=== PATIENT | female | born 1955 | race Caucasian/White ===

== ENCOUNTER → 2016-04-03 | Outpatient (CLI) | payer MEDICARE, BC ==
[2016-04-03 11:37] LABS: HEMATOCRIT 44.7 % (36.0-47.0); HEMOGLOBIN 13.9 g/dL (12.0-15.5); MEAN CORPUSCULAR HEMOGLOBIN 28.6 pg (27.0-33.4); MEAN CORPUSCULAR HGB CONC 31.1 g/dL (32.0-36.0); MEAN CORPUSCULAR VOLUME 92 fl (80-97); RED BLOOD COUNT 4.86 10^6/uL (3.72-5.28); RED CELL DISTRIBUTION WIDTH 13.8 % (11.5-14.0); WHITE BLOOD COUNT 17.9 10^3/uL (4.0-10.5)
[2016-04-03 11:58] LABS: ANION GAP 10 (5-19); BLOOD UREA NITROGEN 6 mg/dL (7-20); CARBON DIOXIDE 37 mmol/L (22-30); CHLORIDE 94 mmol/L (98-107); CHOLESTEROL 263.71 mg/dL (0-200); CREATININE RESULT 0.58 mg/dL (0.52-1.25); Direct HDL 38 mg/dL (>40); GLUCOSE 109 mg/dL (75-110); POTASSIUM 4.2 mmol/L (3.6-5.0); SODIUM 141.1 mmol/L (137-145)
[2016-04-03 12:11] LABS: DIRECT LDL 118 mg/dL (<100)
[2016-04-03 13:00] LABS: TRIGLYCERIDES 752 mg/dL (<150)
== END ==
LOC: OD 10:17
PROVIDERS: ATTEND Family Medicine
DX: E78.2 Mixed hyperlipidemia (principal); E11.9 Type 2 diabetes mellitus without complications; I10 Essential (primary) hypertension; R53.82 Chronic fatigue, unspecified
CPT/HCPCS: 36415; 80048; 80061; 82607; 83036; 84443; 85027

== ENCOUNTER → 2017-02-26 | Outpatient (CLI) | payer MEDICARE, BC | LOC: OD 10:03 | PROVIDERS: ATTEND Family Medicine | DX: E11.9 Type 2 diabetes mellitus without complications (principal) | CPT/HCPCS: 36415; 82043; 83036 ==

== ENCOUNTER 2017-03-15 17:56 | Inpatient (IN) | payer MEDICARE, BC ==
[2017-03-15] MEDS ORDERED: PREDNISONE 20 MG TABLET PO ONE (19:14)
[2017-03-15] MEDS ORDERED: IPRATROPIUM/ALBUTEROL 0.5-2.5 MG/3 ML AMPUL NEB ONE (19:14)
[2017-03-15] MEDS ORDERED: METHYLPREDNISOLONE INJ 125 MG/2 ML SDV IV ONE (19:18)
--- NOTE | 2017-03-15 19:18 | ER Document Report ---
ED General - General Chief Complaint: Nausea/Vomiting/Diarrhea Stated Complaint: FLU LIKE SYMPTOMS Time Seen by Provider: 03/15/17 19:14 Notes: 61 years old female presents today with nausea and vomited a few times and little fever loose stools as well as diffuse abdominal discomfort. And also coughing largely dry but sometimes with yellow sputum. Wheezing on and off. With a history of smoking. General body aches and pain. No headache dizziness neck pain neck stiffness earache. TRAVEL OUTSIDE OF THE [place] IN LAST 30 DAYS: No - Related Data Allergies/Adverse Reactions: sulfamethoxazole [From ] Allergy (Verified 03/15/17 18:18) trimethoprim [From ] Allergy (Verified 03/15/17 18:18) Past Medical History - Social History Smoking Status: Current Every Day Smoker Frequency of alcohol use: None Drug Abuse: None Family History: Hypertension Patient has suicidal ideation: No Patient has homicidal ideation: No - Past Medical History Cardiac Medical History: Reports: Hx Hypertension, Other - COPD Pulmonary Medical History: Reports: Hx COPD - Home Oxygen 4.5L, Hx Pneumonia Endocrine Medical History: Reports: Hx Diabetes Mellitus Type 2 Renal/ Medical History: Denies: Hx Peritoneal Dialysis Review of Systems - Review of Systems Notes: REVIEW OF SYSTEMS: CONSTITUTIONAL : Denies fever, chills, or sweats. Denies recent illness. EENT: Denies eye, ear, throat, or mouth pain or symptoms. Denies nasal or sinus congestion or discharge. Denies throat, tongue, or mouth swelling or difficulty swallowing. CARDIOVASCULAR: Denies chest pain. Denies palpitations or racing or irregular heart beat. Denies ankle edema. RESPIRATORY: GASTROINTESTINAL: As per history of complain GENITOURINARY: Denies difficulty urinating, painful urination, burning, frequency, blood in urine, or discharge. FEMALE GENITOURINARY: Denies vaginal bleeding, heavy or abnormal periods, irregular periods. Denies vaginal discharge or odor. MUSCULOSKELETAL: Denies back or neck pain or stiffness. Denies joint pain or swelling. SKIN: Denies rash, lesions or sores. HEMATOLOGIC : Denies easy bruising or bleeding. LYMPHATIC: Denies swollen, enlarged glands. NEUROLOGICAL: Denies confusion or altered mental status. Denies passing out or loss of consciousness. Denies dizziness or lightheadedness. Denies headache. Denies weakness or paralysis or loss of use of either side. Denies problems with gait or speech. Denies sensory loss, numbness, or tingling. Denies seizures. PSYCHIATRIC: Denies anxiety or stress. Denies depression, suicidal ideation, or homicidal ideation. ALL OTHER SYSTEMS REVIEWED AND NEGATIVE. PHYSICAL EXAMINATION: GENERAL: Well-appearing, well-nourished and i mild to moderate discomfort. HEAD: Atraumatic, normocephalic. EYES: Pupils equal round and reactive to light, extraocular movements intact, conjunctiva are normal. ENT: Nares patent, oropharynx clear without exudates. Moist mucous membranes. NECK: Normal range of motion, supple without lymphadenopathy LUNGS: Bilaterally decreased breath sounds with scattered mild wheezes throughout the lung field HEART: Regular rate and rhythm without murmurs ABDOMEN: Soft, nontender, nondistended abdomen. No guarding, no rebound. No masses appreciated. Female : deferred Musculoskeletal: Normal range of motion, no pitting or edema. No cyanosis. NEUROLOGICAL: Cranial nerves grossly intact. Normal speech, normal gait. Normal sensory, motor exams PSYCH: Normal mood, normal affect. SKIN: Warm, Dry, normal turgor, no rashes or lesions noted. Dictation was performed using [employer] voice recognition software Physical Exam - Vital signs Vitals: Temp Pulse Resp BP Pulse Ox 98.6 F 100 18 108/57 L 93 03/15/17 18:10 03/15/17 18:10 03/15/17 18:10 03/15/17 18:10 03/15/17 18:10 Course - Re-evaluation Re-evalutation: 03/15/17 20:53 Patient complaint of chest pain therefore given morphine, chest x-ray came back as right sided patchy infiltrate of pneumonia. - Vital Signs Vital signs: Temp Pulse Resp BP Pulse Ox 98.6 F 100 18 104/53 L 92 03/15/17 18:10 03/15/17 18:10 03/15/17 18:10 03/15/17 21:02 03/15/17 21:02 - Laboratory Result Diagrams: 03/15/17 20:35 03/15/17 20:35 Laboratory results interpreted by me: 03/15/17 03/15/17 20:35 20:35 WBC 28.5 H RDW 14.8 H Seg Neuts % (Manual) 84 H Lymphocytes % (Manual) 9 L Monocytes % (Manual) 1 L Metamyelocytes % 1 H Abs Neuts (Manual) 25.4 H Sodium 136.3 L Chloride 96 L Carbon Dioxide 32 H Glucose 118 H Discharge - Discharge Clinical Impression: Hypoxia Pneumonia Qualifiers: Pneumonia type: aspiration pneumonia Aspiration pneumonia type: unspecified Laterality: right Lung location: lower lobe of lung Qualified Code(s): J69.0 - Pneumonitis due to inhalation of food and vomit Disposition: ADMITTED INPATIENT Admitting Provider: Hospitalist - Unit Admitted: Telemetry - Referrals: HORACIO CANSECO MD [Primary Care Provider] - Follow up as needed
--- NOTE | 2017-03-15 19:37 | RADIOLOGY REPORT (SQ) ---
EXAM DESCRIPTION: CHEST SINGLE VIEW COMPLETED DATE/TIME: 03/15/2017 7:18 pm REASON FOR STUDY: cough COMPARISON: 10/15/2009 EXAM PARAMETERS: NUMBER OF VIEWS: One view. TECHNIQUE: Single frontal radiographic view of the chest acquired. RADIATION DOSE: NA LIMITATIONS: None. FINDINGS: LUNGS AND PLEURA: Patchy consolidation throughout the right lung. Left lung appears clear . No pneumothorax. No significant effusion. MEDIASTINUM AND HILAR STRUCTURES: Stable. HEART AND VASCULAR STRUCTURES: Heart normal in size. Normal vasculature. BONES: No acute findings. HARDWARE: None in the chest. OTHER: No other significant finding. IMPRESSION: Patchy consolidation throughout the right lung. TECHNICAL DOCUMENTATION: JOB ID: [id number] [place]-72 2010 [employer]- All Rights Reserved
[2017-03-15] MEDS: NORMAL SALINE 1000 ML 1,000 ML IV PRN ×4 (19:40→23:39)
[2017-03-15 20:31] LABS: A TYPE INFLUENZA AG NEGATIVE (NEGATIVE); B INFLUENZA AG NEGATIVE (NEGATIVE)
[2017-03-15] MEDS ORDERED: METOCLOPRAMIDE HCL INJ/PF 10 MG/2 ML SDV IV ONE (20:52)
[2017-03-15] MEDS ORDERED: PIPERACILLIN/TAZOBACTAM 3.375 GM VIAL IV ONE (20:52)
[2017-03-15] MEDS ORDERED: MORPHINE SULFATE 10 MG/ML INJ IV ONE (20:52)
[2017-03-15 21:17] LABS: HEMATOCRIT 43.1 % (36.0-47.0); HEMOGLOBIN 14.1 g/dL (12.0-15.5); MEAN CORPUSCULAR HGB CONC 32.6 g/dL (32.0-36.0); MEAN CORPUSCULAR VOLUME 92 fl (80-97); PLATELET COUNT 357 10^3/uL (150-450); RED BLOOD COUNT 4.69 10^6/uL (3.72-5.28); RED CELL DISTRIBUTION WIDTH 14.8 % (11.5-14.0)
[2017-03-15 21:25] LABS: ALANINE AMINOTRANSFERASE 37 U/L (9-52); ALBUMIN 3.5 g/dL (3.5-5.0); ALKALINE PHOSPHATASE 83 U/L (38-126); ANION GAP 8 (5-19); ASPARTATE AMINO TRANSFERASE 36 U/L (14-36); BILIRUBIN,DIRECT 0.3 mg/dL (0.0-0.4); BILIRUBIN,TOTAL 0.7 mg/dL (0.2-1.3); BLOOD UREA NITROGEN 17 mg/dL (7-20); CALCIUM 8.9 mg/dL (8.4-10.2); CARBON DIOXIDE 32 mmol/L (22-30); CHLORIDE 96 mmol/L (98-107); GLUCOSE 118 mg/dL (75-110); POTASSIUM 4.7 mmol/L (3.6-5.0); SODIUM 136.3 mmol/L (137-145); TOTAL PROTEIN 6.3 g/dL (6.3-8.2)
[2017-03-15 21:46] LABS: ABSOLUTE LYMPHOCYTES# (MANUAL) 2.6 10^3/uL (0.5-4.7); ABSOLUTE MONOCYTES # (MANUAL) 0.3 10^3/uL (0.1-1.4); ABSOLUTE NEUTROPHILS# (MANUAL) 25.4 10^3/uL (1.7-8.2); BAND NEUTROPHILS % (MANUAL) 4 % (3-5); BASOPHILS % (MANUAL) 0 % (0-2); EOSINOPHILS % (MANUAL) 1 % (0-6); LYMPHOCYTES % (MANUAL) 9 % (13-45); METAMYELOCYTES % (MANUAL) 1 % (0); MONOCYTES % (MANUAL) 1 % (3-13); SEGMENTED NEUTROPHILS % (MAN) 84 % (42-78); TOTAL CELLS COUNTED 100
[2017-03-15 21:49] LABS: ANISOCYTOSIS SLIGHT; PLATELET CLUMPS PRESENT; PLATELET COMMENT ADEQUATE; PLATELET GIANT PRESENT; PLATELET LARGE PRESENT; TOXIC GRANULATION 1+
[2017-03-15 21:52] LABS: WHITE BLOOD COUNT 28.5 10^3/uL (4.0-10.5)
[2017-03-15] MEDS ORDERED: LEVALBUTEROL HCL NEB 1.25 MG/3 ML AMPUL NEB PRN (22:14)
[2017-03-15] MEDS ORDERED: ACETAMINOPHEN 325 MG TABLET PO PRN (22:14)
[2017-03-15] MEDS ORDERED: KETOROLAC TROMETHAMINE INJ/PF 30 MG/1 ML SDV IV PRN (22:26)
[2017-03-15] MEDS ORDERED: DEXTROSE 50%-WATER 25 GM/50 ML DISP.SYRIN IV PRN ×2 (22:28)
[2017-03-15] MEDS ORDERED: GLUCAGON,HUMAN RECOMB 1 MG INJ IM PRN (22:28)
[2017-03-15] MEDS ORDERED: DEXTROSE 40% GEL 15 GM TUBE PO PRN ×2 (22:28)
[2017-03-15 23:00] LABS: APPEARANCE,URINE CLOUDY; BILIRUBIN,URINE NEGATIVE (NEGATIVE); COLOR,URINE YELLOW; GLUCOSE, URINE NEGATIVE (NEGATIVE); KETONES,URINE NEGATIVE (NEGATIVE); LEUKOCYTE ESTERASE,URINE LARGE (NEGATIVE); NITRITE,URINE NEGATIVE (NEGATIVE); PROTEIN,URINE NEGATIVE (NEGATIVE); URINE SPECIFIC GRAVITY 1.012; UROBILINOGEN,URINE NEGATIVE mg/dL (<2.0)
[2017-03-15] MEDS ORDERED: LEVOFLOXACIN 750 MG/D5W RTU 750 MG/150 ML RTUPB IV ONE (23:00)
[2017-03-15] MEDS ORDERED: CEFTRIAXONE 1 GM/D5W RTU 1 GM/50 ML RTUPB IV ONE (23:00)
[2017-03-15] MEDS ORDERED: GUAIFENESIN 600 MG TABLET.SA PO ONE (23:00)
[2017-03-15] MEDS ORDERED: NORMAL SALINE 1000 ML 1,000 ML IV ONE (23:22)
[2017-03-15] MEDS ORDERED: BENZONATATE 100 MG CAPSULE PO PRN (23:26)
[2017-03-15] MEDS ORDERED: VANCOMYCIN HCL 0 MG in DEXTROSE 5%-WATER 250 ML IV NR (23:30)
[2017-03-15] MEDS ORDERED: PIPERACILLIN SODIUM/TAZOBACTAM 4.5 GM in NORMAL SALINE 100 ML IV SCH (23:30)
[2017-03-16] MEDS ORDERED: PIPERACILLIN/TAZOBACTAM 4.5 GM VIAL IV PRN (00:45)
[2017-03-16] MEDS ORDERED: VANCOMYCIN HCL INJ 1000 MG VIAL IV PRN (00:50)
[2017-03-16] MEDS ORDERED: VANCOMYCIN HCL INJ 500 MG VIAL IV PRN (00:51)
[2017-03-16] MEDS ORDERED: VANCOMYCIN HCL 1,500 MG in DEXTROSE 5%-WATER 250 ML IV ONE (01:30)
--- NOTE | 2017-03-16 01:41 | PDOC H&P ---
History of Present Illness Admission Date/PCP: 03/15/17 22:20 HORACIO CANSECO MD History of Present Illness: RAYMON GIBBS is a 61 year old female with past medical history of hyperlipidemia, diabetes, diabetic neuropathy prior PE, COPD on 4-1/2 L home O2 who presents to the emergency department with complaints of shortness of breath. Patient reports that she had pneumonia approximately 1 month ago and presented to an urgent care and was given 5 days of Levaquin. She reports she felt marginally better after this but never completely improved. She then subsequently returned to the urgent care and got a different antibiotic of which are she was not name. Patient reported she was feeling much improved from this past Saturday until today when she awoke at 430 this morning with a sudden onset of fever, chills, nausea, vomiting, and diarrhea. She reports that she continued to get short of breath with increased cough. Patient is found in the emergency department to have a very large right-sided pneumonia encompassing upper middle and lower lobe. She is referred to the hospitalist service for sepsis and pneumonia. Past Medical History Cardiac Medical History: Reports: Hypertension, Other - COPD Pulmonary Medical History: Reports: Chronic Obstructive Pulmonary Disease (COPD ) - Home Oxygen 4.5L, Pneumonia Endocrine Medical History: Reports: Diabetes Mellitus Type 2, Obesity Past Surgical History Past Surgical History: Reports: Hysterectomy, Tonsillectomy, Tubal Ligation Social History Smoking Status: Current Every Day Smoker Cigarettes Packs Per Day: 1 Frequency of Alcohol Use: None Hx Recreational Drug Use: No Hx Prescription Drug Abuse: No - Advance Directive Resuscitation Status: Full Code Surrogate healthcare decision maker:: Luis Gibbs, Family History Family History: CAD, COPD, Hypertension Parental Family History Reviewed: Yes Children Family History Reviewed: Yes Sibling(s) Family History Reviewed.: Yes Medication/Allergy Home Medications: Albuterol Sulfate [Ventolin Hfa 8 gm Mdi (1 Mdi/ER Disp)] 2 puff IH ASDIR PRN Citalopram Hydrobromide [Citalopram HBr] 40 mg PO DAILY 03/16/17 Fluticasone/Salmeterol [Advair 250-50 Diskus 28 dose] 250 unit IH ASDIR PRN Gabapentin [Neurontin] 800 mg PO TID 03/16/17 Hydrocodone/Acetaminophen [[place] 10-325 mg Tablet] 1 tab PO ASDIR PRN 03/16/17 Prednisone 20 mg PO ASDIR PRN 03/16/17 Promethazine HCl [Phenergan 25 mg Tablet] 25 - 50 mg PO ASDIR PRN 03/16/17 Allergies/Adverse Reactions: sulfamethoxazole [From Septra] Allergy (Verified 03/16/17 00:26) trimethoprim [From Septra] Allergy (Verified 03/16/17 00:26) Review of Systems Constitutional: PRESENT: chills, fatigue, fever(s), weakness. ABSENT: headache( s), weight gain, weight loss Eyes: ABSENT: visual disturbances Ears: ABSENT: hearing changes Cardiovascular: ABSENT: chest pain, dyspnea on exertion, edema, orthropnea, palpitations Respiratory: PRESENT: dyspnea, sputum. ABSENT: cough, hemoptysis Gastrointestinal: PRESENT: constipation, diarrhea, heartburn, nausea, vomiting. ABSENT: abdominal pain, hematemesis, hematochezia, melena Genitourinary: ABSENT: dysuria, hematuria, nocturia Musculoskeletal: PRESENT: back pain. ABSENT: joint swelling Integumentary: ABSENT: rash, wounds Neurological: ABSENT: abnormal gait, abnormal speech, confusion, dizziness, focal weakness, syncope Psychiatric: ABSENT: anxiety, depression, homidical ideation, suicidal ideation Endocrine: ABSENT: cold intolerance, heat intolerance, polydipsia, polyuria Hematologic/Lymphatic: ABSENT: easy bleeding, easy bruising Physical Exam Vital Signs: Temp Pulse Resp BP Pulse Ox 98.6 F 100 18 98/43 L 91 L 03/15/17 18:10 03/15/17 18:10 03/16/17 00:01 03/16/17 01:16 03/16/17 01:16 General appearance: PRESENT: mild distress, obese, well-developed, well- nourished Head exam: PRESENT: atraumatic, normocephalic Eye exam: PRESENT: conjunctival injection, conjunctiva pink, EOMI, PERRLA. ABSENT: scleral icterus Ear exam: PRESENT: normal external ear exam Mouth exam: PRESENT: dry mucosa, tongue midline Neck exam: PRESENT: lymphadenopathy. ABSENT: JVD, thyromegaly, tracheal deviation Respiratory exam: PRESENT: crackles - Right-sided, prolonged expiratory phas, other - Egophony right upper middle and lower lobe General poor air excursion. ABSENT: rales, rhonchi, wheezes Cardiovascular exam: PRESENT: RRR, +S1, +S2. ABSENT: diastolic murmur, rubs, systolic murmur Pulses: PRESENT: normal dorsalis pedis pul Vascular exam: PRESENT: normal capillary refill GI/Abdominal exam: PRESENT: hypoactive bowel sounds, soft. ABSENT: distended, firm, guarding, mass, organolmegaly, rebound, rigid, tenderness Rectal exam: PRESENT: deferred Extremities exam: PRESENT: full ROM. ABSENT: calf tenderness, clubbing, pedal edema Neurological exam: PRESENT: alert, awake, oriented to person, oriented to place , oriented to time, oriented to situation, CN II-XII grossly intact. ABSENT: motor sensory deficit Psychiatric exam: PRESENT: appropriate affect, normal mood. ABSENT: homicidal ideation, suicidal ideation Skin exam: PRESENT: dry, intact, warm. ABSENT: cyanosis, rash Results Laboratory Results: 03/15/17 22:43 Urine Color YELLOW Urine Appearance CLOUDY Urine pH 5.0 Ur Specific [place] 1.012 Urine Protein NEGATIVE Urine Glucose (UA) NEGATIVE Urine Ketones NEGATIVE Urine Blood NEGATIVE Urine Nitrite NEGATIVE Ur Leukocyte Esterase LARGE H Urine WBC (Auto) 88 Urine RBC (Auto) 5 03/15/17 03/15/17 03/15/17 19:42 20:35 20:35 WBC 28.5 H Hgb 14.1 Hct 43.1 Plt Count 357 Sodium 136.3 L Potassium 4.7 Chloride 96 L Carbon Dioxide 32 H Anion Gap 8 BUN 17 Creatinine 0.92 Glucose 118 H Lactic Acid Calcium 8.9 Total Bilirubin 0.7 Direct Bilirubin 0.3 AST 36 ALT 37 Alkaline Phosphatase 83 Total Protein 6.3 Albumin 3.5 Influenza A (Rapid) NEGATIVE Influenza B (Rapid) NEGATIVE 03/15/17 20:55 WBC Hgb Hct Plt Count Sodium Potassium Chloride Carbon Dioxide Anion Gap BUN Creatinine Glucose Lactic Acid 2.4 H Calcium Total Bilirubin Direct Bilirubin AST ALT Alkaline Phosphatase Total Protein Albumin Influenza A (Rapid) Influenza B (Rapid) Impressions: Chest X-Ray 03/15/17 00:00 IMPRESSION: Patchy consolidation throughout the right lung. Assessment & Plan - Diagnosis (1) COPD (chronic obstructive pulmonary disease) Qualifiers: COPD type: COPD with acute exacerbation Qualified Code(s): J44.1 - Chronic obstructive pulmonary disease with (acute) exacerbation Is this a current diagnosis for this admission?: Yes Plan: Place patient on scheduled nebulized treatments and re-evaluate for improvement. PRN Xopenex Place patient on IV Solu-Medrol Obtain sputum culture Encourage smoking cessation (2) Sepsis Qualifiers: Sepsis type: sepsis due to unspecified organism Qualified Code(s): A41.9 - Sepsis, unspecified organism Is this a current diagnosis for this admission?: Yes Plan: Concern for atypical bacteria and/or MRSA given that patient has failed outpatient Levaquin as well as another antibiotic. This patient on vancomycin and Zosyn for her large right-sided pneumonia. (3) Pneumonia Qualifiers: Pneumonia type: aspiration pneumonia Aspiration pneumonia type: unspecified Laterality: right Lung location: unspecified part of lung Qualified Code(s): J69.0 - Pneumonitis due to inhalation of food and vomit Is this a current diagnosis for this admission?: Yes Plan: Patient has pneumonia in the entire right lung. Concern that this may represent an atypical infection or a pseudomonal infection in light of the fact that patient has likely underlying structural lung disease due to her severe chronic COPD. Place patient on vancomycin and Zosyn, scheduled nebulized treatments, incentive spirometry and flutter valve. Encourage pulmonary toileting. Obtain sputum culture. Direct antibiotic therapy to her pathogen. Patient requires admission for IV antibiotics as she has failed not one but two outpatient antibiotics for her pneumonia. 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 Counseling lasted longer than 3 minutes. (7) Obesity (BMI 30.0-34.9) Is this a current diagnosis for this admission?: Yes - Time Time Spent: 30 to 50 Minutes Medications reviewed and adjusted accordingly: Yes Anticipated discharge: Home with Homehealth - Inpatient Certification Based on my medical assessment, after consideration of the patient's comorbidities, presenting symptoms, or acuity I expect that the services needed warrant INPATIENT care.: Yes I certify that my determination is in accordance with my understanding of Medicare's requirements for reasonable and necessary INPATIENT services [42 CFR 412.3e].: Yes Medical Necessity: Need For IV Fluids, Need For Continuous Telemetry Monitoring , Need for Nebulizer Therapy and Monitoring of Response, Need for IV Antibiotics Post Hospital Care: 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
[2017-03-16] MEDS ORDERED: PIPERACILLIN SODIUM/TAZOBACTAM 4.5 GM in NORMAL SALINE 100 ML IV SCH ×2 (03:00→11:00)
[2017-03-16] MEDS ORDERED: PIPERACILLIN/TAZOBACTAM 4.5 GM VIAL IV ONE (03:54)
[2017-03-16 05:03] LABS: HEMATOCRIT 42.6 % (36.0-47.0); HEMOGLOBIN 13.8 g/dL (12.0-15.5); MEAN CORPUSCULAR HEMOGLOBIN 29.9 pg (27.0-33.4); MEAN CORPUSCULAR HGB CONC 32.3 g/dL (32.0-36.0); MEAN CORPUSCULAR VOLUME 92 fl (80-97); PLATELET COUNT 322 10^3/uL (150-450); RED BLOOD COUNT 4.61 10^6/uL (3.72-5.28)
[2017-03-16 05:14] LABS: ANION GAP 10 (5-19); BLOOD UREA NITROGEN 16 mg/dL (7-20); CALCIUM 8.9 mg/dL (8.4-10.2); CARBON DIOXIDE 28 mmol/L (22-30); CHLORIDE 100 mmol/L (98-107); GLUCOSE 195 mg/dL (75-110); POTASSIUM 4.2 mmol/L (3.6-5.0); SODIUM 137.9 mmol/L (137-145)
[2017-03-16] MEDS: GABAPENTIN 400 MG CAPSULE PO SCH ×3 (05:22→21:58)
[2017-03-16 05:24] LABS: ABSOLUTE LYMPHOCYTES# (MANUAL) 1.4 10^3/uL (0.5-4.7); ABSOLUTE NEUTROPHILS# (MANUAL) 32.7 10^3/uL (1.7-8.2); BAND NEUTROPHILS % (MANUAL) 7 % (3-5); BASOPHILS % (MANUAL) 0 % (0-2); EOSINOPHILS % (MANUAL) 0 % (0-6); LYMPHOCYTES % (MANUAL) 4 % (13-45); MONOCYTES % (MANUAL) 0 % (3-13); SEGMENTED NEUTROPHILS % (MAN) 89 % (42-78); TOTAL CELLS COUNTED 100
[2017-03-16 05:25] LABS: ANISOCYTOSIS SLIGHT; PLATELET COMMENT ADEQUATE; TOXIC GRANULATION 1+
[2017-03-16 05:26] LABS: WHITE BLOOD COUNT 34.1 10^3/uL (4.0-10.5)
[2017-03-16] MEDS ORDERED: METHYLPREDNISOLONE INJ 125 MG/2 ML SDV IV SCH (06:00)
[2017-03-16] MEDS: IPRATROPIUM/ALBUTEROL 0.5-2.5 MG/3 ML AMPUL NEB SCH ×4 (08:03→21:28)
[2017-03-16] MEDS: ENOXAPARIN SODIUM INJ 40 MG/0.4 ML DISP.SYRIN SUBCUT SCH (09:29)
[2017-03-16] MEDS: CITALOPRAM HYDROBROMIDE 20 MG TABLET PO SCH (09:30)
[2017-03-16] MEDS: NICOTINE 21 MG/24 HR PATCH.TD24 TD SCH (09:30)
[2017-03-16] MEDS: AZITHROMYCIN 250 MG TABLET PO SCH (09:30)
[2017-03-16] MEDS: FAMOTIDINE 20 MG TABLET PO SCH ×2 (09:30→21:57)
[2017-03-16] MEDS: GUAIFENESIN 600 MG TABLET.SA PO SCH ×2 (09:36→21:58)
[2017-03-16] MEDS ORDERED: CEFTRIAXONE 1 GM/D5W RTU 1 GM/50 ML RTUPB IV SCH (10:00)
[2017-03-16] MEDS ORDERED: (PENDING PHARMACY ID) (Citalopram Hydrobromide [Citalopram Hbr] 40 MG) PO SCH (10:00)
[2017-03-16] MEDS: FLUTICASONE/SALMETEROL DISKUS 250-50 MCG/DOSE IH SCH ×2 (10:25→21:56)
[2017-03-16] MEDS: PIPERACILLIN SODIUM/TAZOBACTAM 4.5 GM in NORMAL SALINE 100 ML IV SCH ×3 (10:25→20:28)
[2017-03-16] MEDS: FLUTICASONE NASAL SPRAY 50 MCG/SPRY 120 SPRAY/16 GM NASL SCH ×2 (10:26→21:56)
[2017-03-16] MEDS: ALPRAZOLAM 0.5 MG TABLET PO PRN ×2 (10:38→22:03)
--- NOTE | 2017-03-16 11:59 | RADIOLOGY REPORT (SQ) ---
EXAM DESCRIPTION: CT CHEST WITH COMPLETED DATE/TIME: 03/16/2017 11:34 am REASON FOR STUDY: acute on crhonic respiratroy failure COMPARISON: 07/29/2012. Chest radiograph 03/15/2017 TECHNIQUE: CT scan of the chest performed using helical scanning technique with dynamic intravenous contrast injection. Images reviewed with lung, soft tissue and bone windows. Reconstructed coronal and sagittal MPR images reviewed. All images stored on PACS. All CT scanners at this facility use dose modulation, iterative reconstruction, and/or weight based d osing when appropriate to reduce radiation dose to as low as reasonably achievable (ALARA). [facility]: Dose Right [facility]: CareDose [facility]: Dose Right [facility]: Teradose 4D [facility]: [employer] CONTRAST TYPE AND DOSE: contrast/concentration: Isovue 370.00 mg/ml; Total Contrast Delivered: 80.0 ml; Total Saline Delivered: 55.0 ml RENAL FUNCTION: GFR > 60. RADIATION DOSE: CT Rad equipment meets quality standard of care and radiation dose reduction techniq ues were employed. CTDIvol: 12.0 mGy. DLP: 509 mGy-cm. . LIMITATIONS: None. FINDINGS: LUNGS AND PLEURA: Diffuse parenchymal opacities in the right lung superimposed on bullous emphysema. Acute pneumonia. No pleural effusions. No acute process in the left lung. HILAR AND MEDIASTINAL STRUCTURES: No identified masses or abnormal nodes. HEART AND VASCULAR STRUCTURES: No aneurysm or dissection. No central pulmonary emboli. No pericardi al effusion. HARDWARE: None in the chest. UPPER ABDOMEN: Fatty liver. THYROID AND OTHER SOFT TISSUES: No masses. No adenopathy. BONES: No significant finding. OTHER: No other significant finding. IMPRESSION: Diffuse acute right lung pneumonia superimposed on COPD. TECHNICAL DOCUMENTATION: JOB ID: [id number] Quality ID # [id number]: Final reports with documentation of one or more dose reduction techniques (e.g., Au tomated exposure control, adjustment of the mA and/or kV according to patient size, use of iterative reconstruction technique) 2010 [employer]- All Rights Reserved
[2017-03-16] MEDS: INSULIN LISPRO 100 UNIT/ML 3 ML VIAL SUBCUT PRN ×3 (12:02→23:41)
--- NOTE | 2017-03-16 13:27 | PDOC PROGRESS REPORT ---
Subjective Progress Note for:: 03/16/17 Subjective:: Patient relates that her head seems that is going to explode. Her breathing is better ago. She takes Xanax 2 mg around 4-5 times a day and feels that she needs this medication like now. Complains of having hot flashes. Patient states that normally she uses 2 L of oxygen by nasal cannula but since having shortness of breath when up to 4.5 L. Reason For Visit: PNEUMONIA Physical Exam Vital Signs: Temp Pulse Resp BP Pulse Ox 97.5 F 72 16 111/60 91 L 03/16/17 03:36 03/16/17 03:36 03/16/17 03:36 03/16/17 03:36 03/16/17 03:36 Intake & Output 03/15/17 03/16/17 03/17/17 06:59 06:59 06:59 Intake Total 400 Balance 400 Weight 84.8 kg General appearance: PRESENT: cooperative, obese Head exam: PRESENT: atraumatic, normocephalic Eye exam: PRESENT: EOMI, PERRLA Ear exam: PRESENT: normal external ear exam, TM's normal bilaterally Mouth exam: PRESENT: moist, neck supple Neck exam: PRESENT: full ROM. ABSENT: JVD Respiratory exam: PRESENT: crackles, decreased breath sounds Cardiovascular exam: PRESENT: RRR. ABSENT: diastolic murmur, systolic murmur Vascular exam: PRESENT: normal capillary refill GI/Abdominal exam: PRESENT: normal bowel sounds, soft. ABSENT: tenderness Extremities exam: PRESENT: full ROM Neurological exam: PRESENT: alert, awake, oriented to person, oriented to place , oriented to time Psychiatric exam: PRESENT: anxious Results Laboratory Results: 03/16/17 03:53 03/16/17 03:53 03/15/17 03/16/17 03/16/17 22:43 02:00 03:53 WBC 34.1 H* RBC 4.61 Hgb 13.8 Hct 42.6 MCV 92 MCH 29.9 MCHC 32.3 RDW 15.0 H Plt Count 322 Seg Neutrophils % Not Reportable Lymphocytes % Not Reportable Monocytes % Not Reportable Eosinophils % Not Reportable Basophils % Not Reportable Absolute Neutrophils Not Reportable Absolute Lymphocytes Not Reportable Absolute Monocytes Not Reportable Absolute Eosinophils Not Reportable Absolute Basophils Not Reportable Sodium Potassium Chloride Carbon Dioxide Anion Gap BUN Creatinine Est GFR ( Amer) Est GFR (Non-Af Amer) Glucose Lactic Acid 2.0 Calcium Urine Color YELLOW Urine Appearance CLOUDY Urine pH 5.0 Ur Specific [place] 1.012 Urine Protein NEGATIVE Urine Glucose (UA) NEGATIVE Urine Ketones NEGATIVE Urine Blood NEGATIVE Urine Nitrite NEGATIVE Ur Leukocyte Esterase LARGE H Urine WBC (Auto) 88 Urine RBC (Auto) 5 03/16/17 03:53 WBC RBC Hgb Hct MCV MCH MCHC RDW Plt Count Seg Neutrophils % Lymphocytes % Monocytes % Eosinophils % Basophils % Absolute Neutrophils Absolute Lymphocytes Absolute Monocytes Absolute Eosinophils Absolute Basophils Sodium 137.9 Potassium 4.2 Chloride 100 Carbon Dioxide 28 Anion Gap 10 BUN 16 Creatinine 0.70 Est GFR ( Amer) > 60 Est GFR (Non-Af Amer) > 60 Glucose 195 H Lactic Acid Calcium 8.9 Urine Color Urine Appearance Urine pH Ur Specific [place] Urine Protein Urine Glucose (UA) Urine Ketones Urine Blood Urine Nitrite Ur Leukocyte Esterase Urine WBC (Auto) Urine RBC (Auto) Impressions: Chest X-Ray 03/15/17 00:00 IMPRESSION: Patchy consolidation throughout the right lung. Assessment & Plan - Diagnosis (1) Acute and chronic respiratory failure with hypoxia Is this a current diagnosis for this admission?: Yes Plan: To wean off oxygen as tolerated (2) COPD exacerbation Is this a current diagnosis for this admission?: Yes Plan: To continue nebulizer treatments and decrease solumedrol IV. 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 Discontinue vancomycin. Order CT of chest since concerned about malignancy. (5) Sepsis Qualifiers: Sepsis type: sepsis due to unspecified organism Qualified Code(s): A41.9 - Sepsis, unspecified organism Is this a current diagnosis for this admission?: Yes Plan: Resolved (6) Anxiety Is this a current diagnosis for this admission?: Yes Plan: To restart xanax. (7) Tobacco abuse Is this a current diagnosis for this admission?: Yes Plan: Continue nicotine patch. Has been educated to quit. (8) Leukocytosis, unspecified Qualifiers: Leukocytosis type: unspecified Qualified Code(s): D72.829 - Elevated white blood cell count, unspecified Is this a current diagnosis for this admission?: Yes Plan: Patient is clinically better. Suspect may relate to response to high dose steroid. - Time Time Spent with patient: 15-24 minutes Medications reviewed and adjusted accordingly: Yes Anticipated discharge: Home Within: within 72 hours - Inpatient Certification Based on my medical assessment, after consideration of the patient's comorbidities, presenting symptoms, or acuity I expect that the services needed warrant INPATIENT care.: Yes I certify that my determination is in accordance with my understanding of Medicare's requirements for reasonable and necessary INPATIENT services [42 CFR 412.3e].: Yes Medical Necessity: Need for IV Antibiotics
[2017-03-16] MEDS: METHYLPREDNISOLONE INJ 125 MG/2 ML SDV IV SCH ×2 (13:33→21:58)
[2017-03-16] MEDS: VANCOMYCIN HCL 1,500 MG in DEXTROSE 5%-WATER 250 ML IV SCH (16:44)
[2017-03-16] MEDS: LORATADINE 10 MG TABLET PO SCH (21:57)
[2017-03-16] MEDS ORDERED: LEVOFLOXACIN 750 MG/D5W RTU 750 MG/150 ML RTUPB IV SCH (22:00)
[2017-03-17] MEDS: PIPERACILLIN SODIUM/TAZOBACTAM 4.5 GM in NORMAL SALINE 100 ML IV SCH ×4 (03:22→20:28)
[2017-03-17] MEDS: NORMAL SALINE 1000 ML 1,000 ML IV PRN (03:22)
[2017-03-17] MEDS: VANCOMYCIN HCL 1,500 MG in DEXTROSE 5%-WATER 250 ML IV SCH (04:36)
[2017-03-17] MEDS: GABAPENTIN 400 MG CAPSULE PO SCH ×3 (06:05→21:50)
[2017-03-17] MEDS: METHYLPREDNISOLONE INJ 125 MG/2 ML SDV IV SCH ×3 (06:05→21:51)
[2017-03-17 07:14] LABS: HEMATOCRIT 38.5 % (36.0-47.0); HEMOGLOBIN 12.6 g/dL (12.0-15.5); MEAN CORPUSCULAR HEMOGLOBIN 29.8 pg (27.0-33.4); MEAN CORPUSCULAR HGB CONC 32.8 g/dL (32.0-36.0); MEAN CORPUSCULAR VOLUME 91 fl (80-97); PLATELET COUNT 309 10^3/uL (150-450); RED BLOOD COUNT 4.24 10^6/uL (3.72-5.28); RED CELL DISTRIBUTION WIDTH 14.8 % (11.5-14.0)
[2017-03-17 07:38] LABS: ANION GAP 8 (5-19); BLOOD UREA NITROGEN 21 mg/dL (7-20); CALCIUM 9.4 mg/dL (8.4-10.2); CARBON DIOXIDE 29 mmol/L (22-30); CHLORIDE 105 mmol/L (98-107); GLUCOSE 250 mg/dL (75-110); MAGNESIUM 2.2 mg/dL (1.6-2.3); POTASSIUM 3.9 mmol/L (3.6-5.0); SODIUM 141.7 mmol/L (137-145)
[2017-03-17] MEDS: IPRATROPIUM/ALBUTEROL 0.5-2.5 MG/3 ML AMPUL NEB SCH ×4 (08:05→20:31)
[2017-03-17 08:07] LABS: ABSOLUTE LYMPHOCYTES# (MANUAL) 0.6 10^3/uL (0.5-4.7); ABSOLUTE MONOCYTES # (MANUAL) 1.6 10^3/uL (0.1-1.4); ABSOLUTE NEUTROPHILS# (MANUAL) 29.5 10^3/uL (1.7-8.2); BAND NEUTROPHILS % (MANUAL) 1 % (3-5); BASOPHILS % (MANUAL) 0 % (0-2); EOSINOPHILS % (MANUAL) 0 % (0-6); LYMPHOCYTES % (MANUAL) 2 % (13-45); MONOCYTES % (MANUAL) 5 % (3-13); SEGMENTED NEUTROPHILS % (MAN) 92 % (42-78); TOTAL CELLS COUNTED 100
[2017-03-17 08:09] LABS: ANISOCYTOSIS SLIGHT; PLATELET COMMENT ADEQUATE; PLATELET GIANT PRESENT; PLATELET LARGE PRESENT; SCHISTOCYTES 1+; TOXIC GRANULATION 1+
[2017-03-17 08:19] LABS: WHITE BLOOD COUNT 31.7 10^3/uL (4.0-10.5)
[2017-03-17] MEDS: INSULIN LISPRO 100 UNIT/ML 3 ML VIAL SUBCUT PRN ×4 (08:38→21:58)
[2017-03-17] MEDS: NICOTINE 21 MG/24 HR PATCH.TD24 TD SCH (10:23)
[2017-03-17] MEDS: ENOXAPARIN SODIUM INJ 40 MG/0.4 ML DISP.SYRIN SUBCUT SCH (10:23)
[2017-03-17] MEDS: CITALOPRAM HYDROBROMIDE 20 MG TABLET PO SCH (10:23)
[2017-03-17] MEDS: FAMOTIDINE 20 MG TABLET PO SCH ×2 (10:23→21:50)
[2017-03-17] MEDS: AZITHROMYCIN 250 MG TABLET PO SCH (10:23)
[2017-03-17] MEDS: FLUTICASONE/SALMETEROL DISKUS 250-50 MCG/DOSE IH SCH ×2 (10:23→21:50)
[2017-03-17] MEDS: FLUTICASONE NASAL SPRAY 50 MCG/SPRY 120 SPRAY/16 GM NASL SCH ×2 (10:23→21:50)
[2017-03-17] MEDS: GUAIFENESIN 600 MG TABLET.SA PO SCH ×2 (10:42→22:00)
--- NOTE | 2017-03-17 12:37 | EKG REPORT ---
SEVERITY:- ABNORMAL ECG - SINUS RHYTHM RBBB AND LAFB : Confirmed by: Minda Tierney MD 17-Mar-2017 12:36:47
[2017-03-17] MEDS: ALPRAZOLAM 0.5 MG TABLET PO PRN ×2 (13:52→21:50)
--- NOTE | 2017-03-17 14:31 | PDOC PROGRESS REPORT ---
Subjective Progress Note for:: 03/17/17 Subjective:: Patient relates that had been coughing up white phlegm and is breathing better. Has been getting back pain. Reason For Visit: PNEUMONIA Physical Exam Vital Signs: Temp Pulse Resp BP Pulse Ox 97.5 F 82 20 109/58 L 90 L 03/17/17 03:44 03/17/17 03:44 03/17/17 03:44 03/17/17 03:44 03/17/17 03:44 Intake & Output 03/16/17 03/17/17 03/18/17 06:59 06:59 06:59 Intake Total 400 3720 Output Total 500 Balance 400 3220 Weight 84.8 kg 84.8 kg General appearance: PRESENT: no acute distress, cooperative, obese Head exam: PRESENT: atraumatic, normocephalic Eye exam: PRESENT: conjunctiva pink, EOMI, PERRLA Ear exam: PRESENT: normal external ear exam Mouth exam: PRESENT: moist Neck exam: PRESENT: full ROM. ABSENT: JVD, tenderness Respiratory exam: PRESENT: unlabored. ABSENT: tachypnea - Good air movement with a scattered crackles Cardiovascular exam: PRESENT: RRR. ABSENT: diastolic murmur, systolic murmur Vascular exam: PRESENT: normal capillary refill GI/Abdominal exam: PRESENT: normal bowel sounds, soft. ABSENT: tenderness Extremities exam: PRESENT: full ROM. ABSENT: joint swelling, pedal edema Neurological exam: PRESENT: alert, awake, oriented to person, oriented to place , oriented to time, CN II-XII grossly intact Psychiatric exam: PRESENT: appropriate affect, normal mood Results Impressions: Chest X-Ray 03/15/17 00:00 IMPRESSION: Patchy consolidation throughout the right lung. Chest CT 03/16/17 00:00 IMPRESSION: Diffuse acute right lung pneumonia superimposed on COPD. Assessment & Plan - Diagnosis (1) Acute and chronic respiratory failure with hypoxia Is this a current diagnosis for this admission?: Yes Plan: To wean off oxygen as tolerated (2) COPD exacerbation Is this a current diagnosis for this admission?: Yes Plan: To continue nebulizer treatments and solumedrol IV. 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 (5) Sepsis Qualifiers: Sepsis type: sepsis due to unspecified organism Qualified Code(s): A41.9 - Sepsis, unspecified organism Is this a current diagnosis for this admission?: Yes Plan: Resolved (6) Anxiety Is this a current diagnosis for this admission?: Yes Plan: Continue xanax and celexa (7) Tobacco abuse Is this a current diagnosis for this admission?: Yes Plan: Continue nicotine patch. Has been educated to quit. (8) Leukocytosis, unspecified Qualifiers: Leukocytosis type: unspecified Qualified Code(s): D72.829 - Elevated white blood cell count, unspecified Is this a current diagnosis for this admission?: Yes Plan: Patient is clinically better. Suspect may relate to response to high dose steroid. Continue trending. - Time Time Spent with patient: 15-24 minutes Medications reviewed and adjusted accordingly: Yes Anticipated discharge: Home Within: within 72 hours - Inpatient Certification Based on my medical assessment, after consideration of the patient's comorbidities, presenting symptoms, or acuity I expect that the services needed warrant INPATIENT care.: Yes I certify that my determination is in accordance with my understanding of Medicare's requirements for reasonable and necessary INPATIENT services [42 CFR 412.3e].: Yes Medical Necessity: Need for Nebulizer Therapy and Monitoring of Response, Need for IV Antibiotics
[2017-03-17] MEDS: OXYCODONE-ACETAMINOPHEN 5-325 MG TABLET PO PRN (19:01)
[2017-03-17] MEDS: LORATADINE 10 MG TABLET PO SCH (21:50)
[2017-03-17] MEDS: BENZONATATE 100 MG CAPSULE PO PRN (21:59)
[2017-03-17] MEDS: CLINDAMYCIN HCL 150 MG CAPSULE PO SCH (22:00)
[2017-03-18] MEDS: PIPERACILLIN SODIUM/TAZOBACTAM 4.5 GM in NORMAL SALINE 100 ML IV SCH ×4 (03:12→21:12)
[2017-03-18] MEDS: NORMAL SALINE 1000 ML 1,000 ML IV PRN ×2 (03:14→15:23)
[2017-03-18 04:14] LABS: HEMATOCRIT 38.1 % (36.0-47.0); HEMOGLOBIN 12.3 g/dL (12.0-15.5); MEAN CORPUSCULAR HEMOGLOBIN 29.7 pg (27.0-33.4); MEAN CORPUSCULAR HGB CONC 32.4 g/dL (32.0-36.0); MEAN CORPUSCULAR VOLUME 92 fl (80-97); PLATELET COUNT 298 10^3/uL (150-450); RED BLOOD COUNT 4.15 10^6/uL (3.72-5.28); RED CELL DISTRIBUTION WIDTH 14.9 % (11.5-14.0); WHITE BLOOD COUNT 25.6 10^3/uL (4.0-10.5)
[2017-03-18 04:43] LABS: VANCOMYCIN,TROUGH 6.2 ug/mL (5.0-20.0)
[2017-03-18 04:46] LABS: ANION GAP 7 (5-19); BLOOD UREA NITROGEN 18 mg/dL (7-20); CALCIUM 9.4 mg/dL (8.4-10.2); CARBON DIOXIDE 29 mmol/L (22-30); CHLORIDE 106 mmol/L (98-107); GLUCOSE 196 mg/dL (75-110); MAGNESIUM 2.2 mg/dL (1.6-2.3); POTASSIUM 4.2 mmol/L (3.6-5.0); SODIUM 142.4 mmol/L (137-145)
[2017-03-18 04:52] LABS: ABSOLUTE LYMPHOCYTES# (MANUAL) 0.8 10^3/uL (0.5-4.7); ABSOLUTE MONOCYTES # (MANUAL) 0.3 10^3/uL (0.1-1.4); ABSOLUTE NEUTROPHILS# (MANUAL) 24.6 10^3/uL (1.7-8.2); BAND NEUTROPHILS % (MANUAL) 3 % (3-5); BASOPHILS % (MANUAL) 0 % (0-2); EOSINOPHILS % (MANUAL) 0 % (0-6); LYMPHOCYTES % (MANUAL) 3 % (13-45); MONOCYTES % (MANUAL) 1 % (3-13); SEGMENTED NEUTROPHILS % (MAN) 93 % (42-78); TOTAL CELLS COUNTED 100
[2017-03-18 04:54] LABS: ANISOCYTOSIS SLIGHT; PLATELET COMMENT ADEQUATE; TOXIC GRANULATION SLIGHT
[2017-03-18] MEDS: GABAPENTIN 400 MG CAPSULE PO SCH ×3 (06:22→21:07)
[2017-03-18] MEDS: CLINDAMYCIN HCL 150 MG CAPSULE PO SCH ×3 (06:22→21:06)
[2017-03-18] MEDS: INSULIN LISPRO 100 UNIT/ML 3 ML VIAL SUBCUT PRN ×3 (08:16→16:51)
[2017-03-18] MEDS: OXYCODONE-ACETAMINOPHEN 5-325 MG TABLET PO PRN (08:21)
[2017-03-18] MEDS: BENZONATATE 100 MG CAPSULE PO PRN ×2 (08:22→21:17)
[2017-03-18] MEDS: IPRATROPIUM/ALBUTEROL 0.5-2.5 MG/3 ML AMPUL NEB SCH ×4 (09:12→20:53)
[2017-03-18] MEDS: ENOXAPARIN SODIUM INJ 40 MG/0.4 ML DISP.SYRIN SUBCUT SCH (09:56)
[2017-03-18] MEDS: CITALOPRAM HYDROBROMIDE 20 MG TABLET PO SCH (09:57)
[2017-03-18] MEDS: AZITHROMYCIN 250 MG TABLET PO SCH (09:57)
[2017-03-18] MEDS: FAMOTIDINE 20 MG TABLET PO SCH ×2 (09:57→21:07)
[2017-03-18] MEDS: FLUTICASONE NASAL SPRAY 50 MCG/SPRY 120 SPRAY/16 GM NASL SCH ×2 (09:58→21:06)
[2017-03-18] MEDS: METHYLPREDNISOLONE INJ 125 MG/2 ML SDV IV SCH (09:58)
[2017-03-18] MEDS: NICOTINE 21 MG/24 HR PATCH.TD24 TD SCH (09:59)
[2017-03-18] MEDS: GUAIFENESIN 600 MG TABLET.SA PO SCH ×2 (09:59→21:06)
[2017-03-18] MEDS: FLUTICASONE/SALMETEROL DISKUS 250-50 MCG/DOSE IH SCH ×2 (09:59→21:05)
[2017-03-18] MEDS: ALPRAZOLAM 0.5 MG TABLET PO PRN (10:15)
--- NOTE | 2017-03-18 14:13 | PDOC PROGRESS REPORT ---
Subjective Subjective:: Patient relates that feels better and the cough is dry. 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) and had been advised to make an appointment for follow-up once she is discharged Reason For Visit: PNEUMONIA Physical Exam Vital Signs: Temp Pulse Resp BP Pulse Ox 96.5 F L 69 16 173/92 H 90 L 03/18/17 03:55 03/18/17 03:55 03/18/17 03:55 03/18/17 03:55 03/18/17 03:55 Intake & Output 03/17/17 03/18/17 03/19/17 06:59 06:59 06:59 Intake Total 3720 2360 Output Total 500 400 Balance 3220 1960 Weight 84.8 kg 92.2 kg Results Laboratory Results: 03/18/17 03:48 03/18/17 03:48 03/17/17 03/17/17 03/18/17 06:00 06:00 03:48 WBC 31.7 H* 25.6 H RBC 4.24 4.15 Hgb 12.6 12.3 Hct 38.5 38.1 MCV 91 92 MCH 29.8 29.7 MCHC 32.8 32.4 RDW 14.8 H 14.9 H Plt Count 309 298 Seg Neutrophils % Not Reportable Not Reportable Lymphocytes % Not Reportable Not Reportable Monocytes % Not Reportable Not Reportable Eosinophils % Not Reportable Not Reportable Basophils % Not Reportable Not Reportable Absolute Neutrophils Not Reportable Not Reportable Absolute Lymphocytes Not Reportable Not Reportable Absolute Monocytes Not Reportable Not Reportable Absolute Eosinophils Not Reportable Not Reportable Absolute Basophils Not Reportable Not Reportable Sodium 141.7 Potassium 3.9 Chloride 105 Carbon Dioxide 29 Anion Gap 8 BUN 21 H Creatinine 0.69 Est GFR ( Amer) > 60 Est GFR (Non-Af Amer) > 60 Glucose 250 H Calcium 9.4 Magnesium 2.2 03/18/17 03:48 WBC RBC Hgb Hct MCV MCH MCHC RDW Plt Count Seg Neutrophils % Lymphocytes % Monocytes % Eosinophils % Basophils % Absolute Neutrophils Absolute Lymphocytes Absolute Monocytes Absolute Eosinophils Absolute Basophils Sodium 142.4 Potassium 4.2 Chloride 106 Carbon Dioxide 29 Anion Gap 7 BUN 18 Creatinine 0.60 Est GFR ( Amer) > 60 Est GFR (Non-Af Amer) > 60 Glucose 196 H Calcium 9.4 Magnesium 2.2 03/16/17 08:46 Sputum Gram Stain - Final Impressions: Chest X-Ray 03/15/17 00:00 IMPRESSION: Patchy consolidation throughout the right lung. Chest CT 03/16/17 00:00 IMPRESSION: Diffuse acute right lung pneumonia superimposed on COPD. Assessment & Plan - Diagnosis (1) Acute and chronic respiratory failure with hypoxia Is this a current diagnosis for this admission?: Yes Plan: Improved (2) COPD exacerbation Is this a current diagnosis for this admission?: Yes Plan: Discontinue IV Solu-Medrol and start prednisone. 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 Repeat chest x-ray to verify for any worsening though patient clinically improving. (5) Sepsis Qualifiers: Sepsis type: sepsis due to unspecified organism Qualified Code(s): A41.9 - Sepsis, unspecified organism Is this a current diagnosis for this admission?: Yes Plan: Resolved (6) Anxiety Is this a current diagnosis for this admission?: Yes Plan: Continue xanax and celexa (7) Tobacco abuse Is this a current diagnosis for this admission?: Yes Plan: Continue nicotine patch. Has been educated to quit. (8) Leukocytosis, unspecified Qualifiers: Leukocytosis type: unspecified Qualified Code(s): D72.829 - Elevated white blood cell count, unspecified Is this a current diagnosis for this admission?: Yes Plan: Patient is clinically better. Suspect may relate to response to high dose steroid. Continue trending. (9) HTN (hypertension) Qualifiers: Hypertension type: essential hypertension Qualified Code(s): I10 - Essential (primary) hypertension Is this a current diagnosis for this admission?: Yes Plan: Start Norvasc and lisinopril - Time Time Spent with patient: 15-24 minutes Medications reviewed and adjusted accordingly: Yes Anticipated discharge: Home Within: within 72 hours - Inpatient Certification Based on my medical assessment, after consideration of the patient's comorbidities, presenting symptoms, or acuity I expect that the services needed warrant INPATIENT care.: Yes I certify that my determination is in accordance with my understanding of Medicare's requirements for reasonable and necessary INPATIENT services [42 CFR 412.3e].: Yes Medical Necessity: Need Close Monitoring Due to Risk of Patient Decompensation, Need for Nebulizer Therapy and Monitoring of Response, Need for IV Antibiotics
[2017-03-18] MEDS ORDERED: AMLODIPINE BESYLATE 5 MG TABLET PO ONE (14:30)
[2017-03-18] MEDS ORDERED: LISINOPRIL 10 MG TABLET PO ONE (14:30)
--- NOTE | 2017-03-18 15:29 | RADIOLOGY REPORT (SQ) ---
EXAM DESCRIPTION: CHEST PA/LAT COMPLETED DATE/TIME: 03/18/2017 3:09 pm REASON FOR STUDY: follow up COMPARISON: 03/15/2017 EXAM PARAMETERS: NUMBER OF VIEWS: two views TECHNIQUE: Digital Frontal and Lateral radiographic views of the chest acquired. RADIATION DOSE: NA LIMITATIONS: none FINDINGS: LUNGS AND PLEURA: Interval worsening of multifocal airspace disease most severely involvin g the right lung with new left-sided pleural effusion. MEDIASTINUM AND HILAR STRUCTURES: No masses or contour abnormalities. HEART AND VASCULAR STRUCTURES: Heart normal size. No evidence for failure. BONES: No acute findings. HARDWARE: None in the chest. OTHER: No other significant finding. IMPRESSION: WORSENED APPEARANCE OF THE CHEST WITH INCREASED RIGHT-SIDED AIRSPACE DISEASE AND NEW LEF T PLEURAL EFFUSION. TECHNICAL DOCUMENTATION: JOB ID: [id number] [employer]- All Rights Reserved
[2017-03-18] MEDS: LORATADINE 10 MG TABLET PO SCH (21:07)
[2017-03-19] MEDS: OXYCODONE-ACETAMINOPHEN 5-325 MG TABLET PO PRN ×3 (01:14→18:47)
[2017-03-19] MEDS: PIPERACILLIN SODIUM/TAZOBACTAM 4.5 GM in NORMAL SALINE 100 ML IV SCH ×4 (02:20→21:11)
[2017-03-19] MEDS: ALPRAZOLAM 0.5 MG TABLET PO PRN ×3 (02:24→21:09)
[2017-03-19 04:59] LABS: HEMATOCRIT 36.1 % (36.0-47.0); HEMOGLOBIN 11.9 g/dL (12.0-15.5); MEAN CORPUSCULAR HEMOGLOBIN 29.9 pg (27.0-33.4); MEAN CORPUSCULAR HGB CONC 32.8 g/dL (32.0-36.0); MEAN CORPUSCULAR VOLUME 91 fl (80-97); PLATELET COUNT 285 10^3/uL (150-450); RED BLOOD COUNT 3.97 10^6/uL (3.72-5.28); RED CELL DISTRIBUTION WIDTH 15.2 % (11.5-14.0); WHITE BLOOD COUNT 24.7 10^3/uL (4.0-10.5)
[2017-03-19 05:23] LABS: ABSOLUTE LYMPHOCYTES# (MANUAL) 2.7 10^3/uL (0.5-4.7); ABSOLUTE MONOCYTES # (MANUAL) 1.2 10^3/uL (0.1-1.4); ABSOLUTE NEUTROPHILS# (MANUAL) 20.7 10^3/uL (1.7-8.2); BAND NEUTROPHILS % (MANUAL) 3 % (3-5); BASOPHILS % (MANUAL) 0 % (0-2); EOSINOPHILS % (MANUAL) 0 % (0-6); LYMPHOCYTES % (MANUAL) 10 % (13-45); MONOCYTES % (MANUAL) 5 % (3-13); SEGMENTED NEUTROPHILS % (MAN) 81 % (42-78); TOTAL CELLS COUNTED 100
[2017-03-19 05:24] LABS: TOXIC GRANULATION SLIGHT
[2017-03-19 05:25] LABS: ANISOCYTOSIS SLIGHT; PLATELET COMMENT ADEQUATE; POIKILOCYTOSIS SLIGHT; STOMATOCYTES SLIGHT
[2017-03-19] MEDS: GABAPENTIN 400 MG CAPSULE PO SCH ×3 (05:27→21:10)
[2017-03-19] MEDS: CLINDAMYCIN HCL 150 MG CAPSULE PO SCH ×3 (05:47→21:10)
[2017-03-19] MEDS: IPRATROPIUM/ALBUTEROL 0.5-2.5 MG/3 ML AMPUL NEB SCH ×3 (07:36→20:37)
[2017-03-19 09:36] LABS: PATH REVIEW PATHOLOGIST REVIEWED
[2017-03-19] MEDS: ENOXAPARIN SODIUM INJ 40 MG/0.4 ML DISP.SYRIN SUBCUT SCH (10:10)
[2017-03-19] MEDS: BENZONATATE 100 MG CAPSULE PO PRN ×2 (10:13→21:16)
[2017-03-19] MEDS: CITALOPRAM HYDROBROMIDE 20 MG TABLET PO SCH (10:13)
[2017-03-19] MEDS: FAMOTIDINE 20 MG TABLET PO SCH ×2 (10:13→21:10)
[2017-03-19] MEDS: LISINOPRIL 10 MG TABLET PO SCH (10:14)
[2017-03-19] MEDS: AMLODIPINE BESYLATE 5 MG TABLET PO SCH (10:15)
[2017-03-19] MEDS: AZITHROMYCIN 250 MG TABLET PO SCH (10:15)
[2017-03-19] MEDS: PREDNISONE 20 MG TABLET PO SCH (10:17)
[2017-03-19] MEDS: NICOTINE 21 MG/24 HR PATCH.TD24 TD SCH (10:22)
[2017-03-19] MEDS: FLUTICASONE NASAL SPRAY 50 MCG/SPRY 120 SPRAY/16 GM NASL SCH ×2 (10:25→21:08)
[2017-03-19] MEDS: FLUTICASONE/SALMETEROL DISKUS 250-50 MCG/DOSE IH SCH ×2 (10:25→21:08)
[2017-03-19] MEDS: GUAIFENESIN 600 MG TABLET.SA PO SCH ×2 (10:30→21:11)
--- NOTE | 2017-03-19 13:02 | PDOC PROGRESS REPORT ---
Subjective Progress Note for:: 03/19/17 Subjective:: Reports having some diarrhea Reason For Visit: PNEUMONIA Physical Exam Vital Signs: Temp Pulse Resp BP Pulse Ox 98.5 F 83 14 139/70 H 89 L 03/19/17 03:30 03/19/17 07:36 03/19/17 07:36 03/19/17 03:30 03/19/17 07:36 Intake & Output 03/18/17 03/19/17 03/20/17 06:59 06:59 06:59 Intake Total 4060 2480 Output Total 400 600 Balance 3660 1880 Weight 92.2 kg 92.2 kg General appearance: PRESENT: no acute distress Eye exam: PRESENT: conjunctiva pink. ABSENT: scleral icterus Mouth exam: PRESENT: moist, tongue midline Neck exam: ABSENT: JVD Respiratory exam: PRESENT: wheezes - Right-sided expiratory wheezes. ABSENT: rales, rhonchi Cardiovascular exam: PRESENT: RRR. ABSENT: diastolic murmur, rubs, systolic murmur GI/Abdominal exam: PRESENT: normal bowel sounds, soft. ABSENT: distended, guarding, mass, organolmegaly, rebound, tenderness Extremities exam: ABSENT: calf tenderness, clubbing, pedal edema Neurological exam: PRESENT: alert, awake, oriented to person, oriented to place , oriented to time, oriented to situation, CN II-XII grossly intact. ABSENT: motor sensory deficit Psychiatric exam: PRESENT: appropriate affect Skin exam: PRESENT: dry, intact, warm. ABSENT: cyanosis, rash Results Laboratory Results: 03/19/17 04:30 03/18/17 03:48 03/19/17 04:30 WBC 24.7 H RBC 3.97 Hgb 11.9 L Hct 36.1 MCV 91 MCH 29.9 MCHC 32.8 RDW 15.2 H Plt Count 285 Seg Neutrophils % Not Reportable Lymphocytes % Not Reportable Monocytes % Not Reportable Eosinophils % Not Reportable Basophils % Not Reportable Absolute Neutrophils Not Reportable Absolute Lymphocytes Not Reportable Absolute Monocytes Not Reportable Absolute Eosinophils Not Reportable Absolute Basophils Not Reportable 03/16/17 08:46 Sputum Gram Stain - Final 03/16/17 08:46 Sputum Sputum Culture - Final Escherichia Coli C.albicans/C.dubliniensis Normal Aurelia Absent Impressions: Chest CT 03/16/17 00:00 IMPRESSION: Diffuse acute right lung pneumonia superimposed on COPD. Chest X-Ray 03/18/17 00:00 IMPRESSION: WORSENED APPEARANCE OF THE CHEST WITH INCREASED RIGHT-SIDED AIRSPACE DISEASE AND NEW LEFT PLEURAL EFFUSION. Assessment & Plan - Diagnosis (1) Acute and chronic respiratory failure with hypoxia Is this a current diagnosis for this admission?: Yes Plan: Secondary to pneumonia and COPD. Will continue with the Zosyn, Zithromax, clindamycin. (2) Pneumonia Qualifiers: Pneumonia type: aspiration pneumonia Aspiration pneumonia type: unspecified Laterality: right Lung location: unspecified part of lung Qualified Code(s): J69.0 - Pneumonitis due to inhalation of food and vomit Is this a current diagnosis for this admission?: Yes Plan: Growing E. coli from cultures. Will probably switch to p.o. antibiotics tomorrow. (3) COPD exacerbation Is this a current diagnosis for this admission?: Yes Plan: Continue with nebulizers. 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 Qualified Code(s): E11.40 - Type 2 diabetes mellitus with diabetic neuropathy, unspecified Is this a current diagnosis for this admission?: Yes (6) HTN (hypertension) Qualifiers: Hypertension type: essential hypertension Qualified Code(s): I10 - Essential (primary) hypertension Is this a current diagnosis for this admission?: Yes (7) Sepsis Qualifiers: Sepsis type: sepsis due to unspecified organism Qualified Code(s): A41.9 - Sepsis, unspecified organism Is this a current diagnosis for this admission?: Yes (8) Tobacco abuse Is this a current diagnosis for this admission?: Yes (9) Diarrhea Is this a current diagnosis for this admission?: Yes Plan: We will check a C. difficile and start Lomotil. - Time Time Spent with patient: 25-34 minutes - Inpatient Certification Medical Necessity: Need for IV Antibiotics
[2017-03-19] MEDS ORDERED: DIPHENOXYLATE HCL/ATROP SULF 2.5-0.025 MG TABLET PO PRN (13:19)
[2017-03-19] MEDS ORDERED: LEVALBUTEROL HCL NEB 1.25 MG/3 ML AMPUL NEB PRN (13:30)
[2017-03-19] MEDS: LORATADINE 10 MG TABLET PO SCH (21:11)
[2017-03-19] MEDS: INSULIN LISPRO 100 UNIT/ML 3 ML VIAL SUBCUT PRN (21:16)
[2017-03-20] MEDS: OXYCODONE-ACETAMINOPHEN 5-325 MG TABLET PO PRN (01:07)
[2017-03-20] MEDS: PIPERACILLIN SODIUM/TAZOBACTAM 4.5 GM in NORMAL SALINE 100 ML IV SCH ×2 (02:15→10:31)
[2017-03-20] MEDS ORDERED: GUAIFENESIN SYRP 200 MG/10 ML UDC PO PRN (02:18)
[2017-03-20] MEDS: CLINDAMYCIN HCL 150 MG CAPSULE PO SCH (05:34)
[2017-03-20] MEDS: GABAPENTIN 400 MG CAPSULE PO SCH (05:34)
[2017-03-20 05:41] LABS: HEMATOCRIT 35.8 % (36.0-47.0); HEMOGLOBIN 11.7 g/dL (12.0-15.5); MEAN CORPUSCULAR HEMOGLOBIN 29.6 pg (27.0-33.4); MEAN CORPUSCULAR HGB CONC 32.7 g/dL (32.0-36.0); MEAN CORPUSCULAR VOLUME 90 fl (80-97); PLATELET COUNT 271 10^3/uL (150-450); RED BLOOD COUNT 3.96 10^6/uL (3.72-5.28); RED CELL DISTRIBUTION WIDTH 14.6 % (11.5-14.0); WHITE BLOOD COUNT 18.8 10^3/uL (4.0-10.5)
[2017-03-20 06:06] LABS: ANION GAP 9 (5-19); BLOOD UREA NITROGEN 11 mg/dL (7-20); CALCIUM 8.3 mg/dL (8.4-10.2); CARBON DIOXIDE 36 mmol/L (22-30); CHLORIDE 97 mmol/L (98-107); GLUCOSE 87 mg/dL (75-110); POTASSIUM 3.5 mmol/L (3.6-5.0); SODIUM 141.6 mmol/L (137-145)
[2017-03-20 06:09] LABS: ABSOLUTE LYMPHOCYTES# (MANUAL) 4.5 10^3/uL (0.5-4.7); ABSOLUTE MONOCYTES # (MANUAL) 0.9 10^3/uL (0.1-1.4); ABSOLUTE NEUTROPHILS# (MANUAL) 13.2 10^3/uL (1.7-8.2); BASOPHILS % (MANUAL) 0 % (0-2); EOSINOPHILS % (MANUAL) 1 % (0-6); LYMPHOCYTES % (MANUAL) 24 % (13-45); MONOCYTES % (MANUAL) 5 % (3-13); SEGMENTED NEUTROPHILS % (MAN) 70 % (42-78); TOTAL CELLS COUNTED 100
[2017-03-20 06:11] LABS: ANISOCYTOSIS SLIGHT; PLATELET COMMENT ADEQUATE; TOXIC GRANULATION SLIGHT; TOXIC VACUOLATION PRESENT
[2017-03-20 07:39] LABS: INFLUENZA B AB (SERUM) CF 1:32 (Neg:<1:8)
[2017-03-20] MEDS: IPRATROPIUM/ALBUTEROL 0.5-2.5 MG/3 ML AMPUL NEB SCH (08:11)
[2017-03-20] MEDS: AZITHROMYCIN 250 MG TABLET PO SCH (10:23)
[2017-03-20] MEDS: CITALOPRAM HYDROBROMIDE 20 MG TABLET PO SCH (10:24)
[2017-03-20] MEDS: FAMOTIDINE 20 MG TABLET PO SCH (10:31)
[2017-03-20] MEDS: GUAIFENESIN 600 MG TABLET.SA PO SCH (10:31)
[2017-03-20] MEDS: PREDNISONE 20 MG TABLET PO SCH (10:31)
[2017-03-20] MEDS: NICOTINE 21 MG/24 HR PATCH.TD24 TD SCH (10:31)
[2017-03-20] MEDS: AMLODIPINE BESYLATE 5 MG TABLET PO SCH (10:31)
[2017-03-20] MEDS: LISINOPRIL 10 MG TABLET PO SCH (10:31)
[2017-03-20] MEDS: ENOXAPARIN SODIUM INJ 40 MG/0.4 ML DISP.SYRIN SUBCUT SCH (10:31)
[2017-03-20 11:15] VITALS: BP 132/65
[2017-03-20] MEDS: FLUTICASONE/SALMETEROL DISKUS 250-50 MCG/DOSE IH SCH (11:38)
[2017-03-20] MEDS: FLUTICASONE NASAL SPRAY 50 MCG/SPRY 120 SPRAY/16 GM NASL SCH (11:38)
--- NOTE | 2017-03-20 14:47 | PDOC DISCHARGE SUMMARY ---
General - Admit/Disc Date/PCP Admission Date/Primary Care Provider: 03/15/17 22:20 HORACIO CANSECO MD Discharge Date: 03/20/17 - Discharge Diagnosis (1) Acute and chronic respiratory failure with hypoxia Is this a current diagnosis for this admission?: Yes (2) Sepsis Is this a current diagnosis for this admission?: Yes (3) Pneumonia Is this a current diagnosis for this admission?: Yes (4) COPD exacerbation Is this a current diagnosis for this admission?: Yes (5) Influenza Is this a current diagnosis for this admission?: Yes (6) Anxiety Is this a current diagnosis for this admission?: Yes (7) Diabetes mellitus with neuropathy Is this a current diagnosis for this admission?: Yes (8) HTN (hypertension) Is this a current diagnosis for this admission?: Yes (9) Tobacco abuse Is this a current diagnosis for this admission?: Yes (10) Diarrhea Is this a current diagnosis for this admission?: Yes - Additional Information Resuscitation Status: Full Code Discharge Diet: Cardiac Discharge Activity: Activity As Tolerated Prescriptions: Amlodipine Besylate [Norvasc 5 mg Tablet] 5 mg PO DAILY #30 tablet Amox Tr/Potassium Clavulanate [Augmentin 875-125 mg Tablet] 1 tab PO BID #20 tablet Diphenoxylate HCl/Atrop Sulf [Lomotil 2.5 mg Tablet] 1 tab PO Q4HP PRN #14 tablet PRN Reason: Fluticasone/Salmeterol [Advair 250-50 Diskus 28 dose] 1 puff IH BID #1 inhaler Lisinopril [Prinivil 10 mg Tablet] 10 mg PO DAILY #30 tablet Prednisone [Deltasone 20 mg Tablet] 40 mg PO DAILY #11 tablet Home Medications: Albuterol Sulfate [Ventolin Hfa] 2 puff IH Q4HP PRN 03/16/17 Alprazolam [Xanax] 2 mg PO TID 03/16/17 Alprazolam [Xanax] 4 mg PO QHS 03/16/17 Aspirin [Adult Low Dose Aspirin EC] 81 mg PO DAILY 03/16/17 Citalopram Hydrobromide [Celexa 40 mg Tablet] 40 mg PO BID 03/16/17 Gabapentin [Neurontin] 800 mg PO Q6 03/16/17 Hydrocodone/Acetaminophen [Makoti 10-325 mg Tablet] 1 tab PO TIDP PRN 03/16/17 Promethazine HCl [Phenergan 25 mg Tablet] 25 mg PO TIDP PRN 03/16/17 Amlodipine Besylate [Norvasc 5 mg Tablet] 5 mg PO DAILY #30 tablet 03/20/17 Amox Tr/Potassium Clavulanate [Augmentin 875-125 mg Tablet] 1 tab PO BID #20 tablet 03/20/17 Diphenoxylate HCl/Atrop Sulf [Lomotil 2.5 mg Tablet] 1 tab PO Q4HP PRN #14 tablet 03/20/17 Fluticasone/Salmeterol [Advair 250-50 Diskus 28 dose] 1 puff IH BID #1 inhaler 03/20/17 Lisinopril [Prinivil 10 mg Tablet] 10 mg PO DAILY #30 tablet 03/20/17 Nicotine [Nicoderm 21 mg/24 Hr Transderm Patch] 1 each TD DAILY patch.td24 06/02 Prednisone [Deltasone 20 mg Tablet] 40 mg PO DAILY #11 tablet 03/20/17 History of Present Illness History of Present Illness: RAYMON AGUSTIN is a 61 year old female who has a history of diabetes, COPD chronically on 4-1/2 L of oxygen at home who presented to emergency room with shortness of breath. The patient had been treated for pneumonia 1 month prior. The patient reported that she never did improve. The patient presented with sudden onset of fevers, chills, nausea, vomiting and diarrhea. The patient presented to emergency room was found to have a right-sided pneumonia involving the upper and lower lobe. Patient also was tachycardic and relatively hypotensive and was diagnosed with sepsis secondary to pneumonia. Hospital Course Hospital Course: 61-year-old female with a history of COPD chronically on oxygen who presented with worsening shortness of breath and was found to have a right sided upper and lower pneumonia. The patient also was felt to have sepsis given the tachycardia and relatively low blood pressures. The patient was treated with IV fluids as well as IV antibiotics. Her cultures have been negative. The patient had a flu swab initially when she presented and that was negative. Titers for influenza were sent and have come back positive. The patient clinically has improved dramatically and she is back to her baseline status. Patient will be sent home to complete a total of 14 days of antibiotics. The patient's other medical problems all were stable during this hospitalization. Physical Exam Vital Signs: Temp Pulse Resp BP Pulse Ox 97.4 F 72 16 132/65 H 89 L 03/20/17 10:03 03/20/17 10:03 03/20/17 10:03 03/20/17 10:03 03/20/17 10:03 Intake & Output 03/19/17 03/20/17 03/21/17 06:59 06:59 06:59 Intake Total 2480 2610 Output Total 600 500 Balance 1880 2110 Weight 92.2 kg 92.2 kg General appearance: PRESENT: no acute distress Eye exam: PRESENT: conjunctiva pink. ABSENT: scleral icterus Mouth exam: PRESENT: moist, tongue midline Neck exam: ABSENT: JVD Respiratory exam: PRESENT: clear to auscultation ashley. ABSENT: rales, rhonchi, wheezes Cardiovascular exam: PRESENT: RRR. ABSENT: diastolic murmur, rubs, systolic murmur GI/Abdominal exam: PRESENT: normal bowel sounds, soft. ABSENT: distended, guarding, mass, organolmegaly, rebound, tenderness Extremities exam: ABSENT: calf tenderness, clubbing, pedal edema Neurological exam: PRESENT: alert, awake, oriented to person, oriented to place , oriented to time, oriented to situation, CN II-XII grossly intact. ABSENT: motor sensory deficit Psychiatric exam: PRESENT: appropriate affect Skin exam: PRESENT: dry, intact, warm. ABSENT: cyanosis, rash Results Laboratory Results: 03/20/17 04:54 03/20/17 04:54 03/20/17 03/20/17 04:54 04:54 WBC 18.8 H RBC 3.96 Hgb 11.7 L Hct 35.8 L MCV 90 MCH 29.6 MCHC 32.7 RDW 14.6 H Plt Count 271 Seg Neutrophils % Not Reportable Lymphocytes % Not Reportable Monocytes % Not Reportable Eosinophils % Not Reportable Basophils % Not Reportable Absolute Neutrophils Not Reportable Absolute Lymphocytes Not Reportable Absolute Monocytes Not Reportable Absolute Eosinophils Not Reportable Absolute Basophils Not Reportable Sodium 141.6 Potassium 3.5 L Chloride 97 L Carbon Dioxide 36 H Anion Gap 9 BUN 11 Creatinine 0.59 Est GFR ( Amer) > 60 Est GFR (Non-Af Amer) > 60 Glucose 87 Calcium 8.3 L Impressions: Chest CT 03/16/17 00:00 IMPRESSION: Diffuse acute right lung pneumonia superimposed on COPD. Chest X-Ray 03/18/17 00:00 IMPRESSION: WORSENED APPEARANCE OF THE CHEST WITH INCREASED RIGHT-SIDED AIRSPACE DISEASE AND NEW LEFT PLEURAL EFFUSION. Qualifiers PATEINT BEING DISCHARGED WITH ANY OF THE FOLLOWING DIAGNOSIS?: No Plan Discharge Plan: Patient is discharged to home. Will follow up with primary care in 2 weeks. Time Spent: Greater than 30 Minutes
== END 2017-03-20 12:08 | disposition home or self-care (01) | DRG 871 ==
LOC: ER 17:56 → EH 22:20 → 4N 03-16 03:33
PROVIDERS: ADMIT Family Medicine; ATTEND Family Medicine
PROC: 3E0F73Z Introduction of Anti-inflammatory into Respiratory Tract, Via Natural or Artificial Opening (ICD-10-PCS; principal; 2017-03-16)
DX: A41.9 Sepsis, unspecified organism (principal); J11.00 Influenza due to unidentified influenza virus with unspecified type of pneumonia; J96.21 Acute and chronic respiratory failure with hypoxia; J69.0 Pneumonitis due to inhalation of food and vomit; J44.1 Chronic obstructive pulmonary disease with (acute) exacerbation; J44.0 Chronic obstructive pulmonary disease with (acute) lower respiratory infection; E11.40 Type 2 diabetes mellitus with diabetic neuropathy, unspecified; E78.5 Hyperlipidemia, unspecified; I10 Essential (primary) hypertension; E66.9 Obesity, unspecified; F17.210 Nicotine dependence, cigarettes, uncomplicated; F41.9 Anxiety disorder, unspecified; Z86.711 Personal history of pulmonary embolism; Z99.81 Dependence on supplemental oxygen; Z68.33 Body mass index [BMI] 33.0-33.9, adult; Z88.2 Allergy status to sulfonamides; Z88.8 Allergy status to other drugs, medicaments and biological substances; Z82.49 Family history of ischemic heart disease and other diseases of the circulatory system; Z82.5 Family history of asthma and other chronic lower respiratory diseases; Z79.899 Other long term (current) drug therapy
CPT/HCPCS: 36415; 71010; 71046; 71260; 80048; 80053; 80202; 81001; 82962; 83605; 83735; 85025; 86710; 87040; 87070; 87077; 87186; 87205; 87804; 93005; 93010; 94640; 94667; 94668; 94799; 96361; 96365; 96375; 99285; J0696; J1650; J1815; J1885; J2270; J2543; J2765; J2930; J3370; J3490; J7030; J7060; J7512; J7620

== ENCOUNTER → 2017-09-09 | Outpatient (CLI) | payer MEDICARE, BC ==
[2017-09-09 10:44] LABS: URINE BARBITURATES SCREEN NEGATIVE; URINE COCAINE SCREEN NEGATIVE; URINE MARIJUANA (THC) SCREEN NEGATIVE; URINE METHADONE SCREEN NEGATIVE; URINE PHENCYCLIDINE SCREEN NEGATIVE
[2017-09-09 10:56] LABS: URINE AMPHETAMINES SCREEN NEGATIVE
[2017-09-09 11:01] LABS: CHOLESTEROL 330.44 mg/dL (0-200); DIRECT LDL 170 mg/dL (<100); TRIGLYCERIDES 607 mg/dL (<150)
[2017-09-09 11:10] LABS: URINE BENZODIAZEPINES SCREEN UNCONFIRMED POSITIVE
[2017-09-11 08:54] LABS: OXYCODONE/OXYMORPHONE UR Negative ng/mL (Cutoff=200)
== END ==
LOC: OD 09:14
PROVIDERS: ATTEND Family Medicine
DX: E11.9 Type 2 diabetes mellitus without complications (principal); E78.2 Mixed hyperlipidemia; I10 Essential (primary) hypertension; Z79.899 Other long term (current) drug therapy
CPT/HCPCS: 36415; 84443; 80307; 83036; 80061; G0480 ×2